=== PATIENT | male | born 1945 | race Caucasian/White ===

== ENCOUNTER → 2017-06-16 | Outpatient (CLI) | payer OTHER | LOC: FIMAGING 13:56 | PROVIDERS: ATTEND Internal Medicine | DX: R22.32 Localized swelling, mass and lump, left upper limb (principal) ==

== ENCOUNTER → 2017-06-29 | Outpatient (CLI) | payer OTHER | LOC: CIMAGING 15:09 | PROVIDERS: ATTEND Internal Medicine | DX: R91.8 Other nonspecific abnormal finding of lung field (principal); M79.89 Other specified soft tissue disorders | CPT/HCPCS: 71020-PO ==

== ENCOUNTER 2017-08-29 15:54 | Emergency (ER) | payer OTHER ==
--- NOTE | 2017-08-29 16:08 | EDPHY ---
H & P Time Seen by Provider: 08/29/17 16:07 HPI/ROS: Chief complaint. Vomiting and diarrhea HPI. 71-year-old male presents to the emergency department with vomiting and diarrhea that began early this morning. He has had both vomiting and diarrhea. No abdominal pain. No blood in either vomitus or stool. No fever chills. Recent travel to [place] reason returning 2 days ago. Also went to the [employer] yesterday and had done butted popcorn. He is tells me that he has gotten sick from movie food previously. Denies chest pain or shortness of breath. Symptoms are worse with lying on either side and seemed to be somewhat better lying on his back. He does have some achy back pain ROS Constitutional. no fever/chills, no weakness Eyes. no problems with vision ENT. no sore throat, no nasal drainage Cardiovascular. no chest pain Respiratory. no shortness of breath, no cough Abdominal. No abdominal pain but vomiting and diarrhea . no problems urinating MS. no calf pain/swelling, no neck/back pain, no joint pain Skin. no rash Lymph. no swollen glands Neuro. no headache, no dizziness, no difficulty walking or with speech Past Medical/Surgical History: GERD, hernia surgery Social History: , nonsmoker, no alcohol Smoking Status: Never smoked Physical Exam: General Appearance: Alert well-developed male mild distress vital signs are stable Eyes: Pupils equal and round no pallor or injection. ENT, mucous membranes are dry Respiratory: There are no retractions, lungs are clear to auscultation. Cardiovascular: Regular rate and rhythm. Gastrointestinal: Abdomen is soft and nontender, no masses, bowel sounds normal. Neurological: Awake and alert, sensory and motor exams grossly normal. Skin: Warm and dry, no rashes. Musculoskeletal: Neck is supple nontender. Extremities symmetrical, full range of motion. Psychiatric: Patient is oriented X 3, there is no agitation. Constitutional: Initial Vital Signs Temperature (C) 36.4 C 08/29/17 16:09 Heart Rate 79 08/29/17 16:09 Respiratory Rate 16 08/29/17 16:09 Blood Pressure 131/69 H 08/29/17 16:09 O2 Sat (%) 96 08/29/17 16:09 O2 Delivery Mode Room Air Allergies/Adverse Reactions: No Known Allergies Allergy (Verified 08/29/17 16:11) Home Medications: Medication Instructions Recorded Cialis 07/28/15 Omeprazole 07/28/15 Ondansetron Odt [Zofran Odt] 4 mg PO Q4PRN PRN #7 tab 08/29/17 Ranitidine HCl 08/29/17 Medical Decision Making Procedures: IV normal saline with initial target 2 L. Zofran for nausea ED Course/Re-evaluation: Re-evaluation 5:00 p.m.. Patient is almost finished with 1st L of saline. No urge to urinate. Decreased nausea. No abdominal pain. Beginning to take oral ice chips. 2nd IV bag is ordered 5:45 p.m. Re-evaluation and no need to urinate after to bags of fluid. 3rd bag of saline is ordered Recheck again at 6:50 p.m.. No nausea. He has some reflux and asks for some Maalox or Mylanta. Patient and I discussed treatment plan including criteria for return importance of follow-up and further evaluation. He expresses understanding and agreement Re-evaluation again at 7:30 p.m. patient is stable improved his urinated. He is taking oral fluids. He feels well. The Maalox helped his GERD. Differential Diagnosis: Likely this is food poisoning or vomiting and diarrhea gastroenteritis type illness. No evidence for diverticulitis or appendicitis - Data Points Medications Given: Discontinued Medications Al Hydroxide/Mg Hydroxide (Maalox Susp) 30 ml PO ONCE ONE Stop: 08/29/17 18:58 Last Admin: 08/29/17 19:04 Dose: 30 ml Sodium Chloride (Ns) 1,000 mls @ 0 mls/hr IV EDNOW ONE; Wide Open PRN Reason: Protocol Stop: 08/29/17 16:23 Last Admin: 08/29/17 16:35 Dose: 1,000 mls Sodium Chloride (Ns) 1,000 mls @ 0 mls/hr IV EDNOW ONE; Wide Open PRN Reason: Protocol Stop: 08/29/17 16:23 Last Admin: 08/29/17 17:38 Dose: 1,000 mls Sodium Chloride (Ns) 1,000 mls @ 0 mls/hr IV ONCE ONE PRN Reason: Wide Open Stop: 08/29/17 18:15 Last Admin: 08/29/17 18:15 Dose: 1,000 mls Ondansetron HCl (Zofran) 4 mg IVP EDNOW ONE Stop: 08/29/17 16:23 Last Admin: 08/29/17 16:38 Dose: 4 mg Ondansetron HCl (Zofran Odt 4 Mg Prepack#2) 1 btl TAKEHOME EDNOW ONE Stop: 08/29/17 19:00 Last Admin: 08/29/17 19:15 Dose: 1 btl Departure - Departure Disposition: Home, Routine, Self-Care Clinical Impression: Acute gastroenteritis Condition: Good Instructions: Gastroenteritis (ED) Additional Instructions: Frequent, small sips fluids. Gradual diet advancement. Zofran using 1 pill every 3-4 hours as needed for nausea and vomiting. Return for worsening symptoms. Recheck tomorrow if not continuing to improve Referrals: Lissett Renae MD [Primary Care Provider] - 1 day, if not improved Prescriptions: Ondansetron Odt [Zofran Odt] 4 mg PO Q4PRN PRN #7 tab PRN Reason: Nausea/Vomiting, Use 1st
[2017-08-29 16:10] VITALS: O2SAT 96
[2017-08-29] MEDS ORDERED: NS 1,000 ML IV ONE ×3 (16:22→18:14)
[2017-08-29] MEDS ORDERED: ONDANSETRON 4 MG/2 ML VIAL IVP ONE (16:22)
[2017-08-29] MEDS ORDERED: MAG HYDROX/AL HYDROX/SIMETH 30 ML UDCUP PO ONE (18:57)
[2017-08-29] MEDS ORDERED: ONDANSETRON 4MG PREPACK#2 BTL TAKEHOME ONE (18:59)
[2017-08-29 19:19] VITALS: BP 131/74; PULSE 75; RESP 18
[2017-08-29 19:25] VITALS: TEMP 99.8
== END 2017-08-29 19:59 | disposition home or self-care (01) ==
LOC: CED 15:54
DX: K52.9 Noninfective gastroenteritis and colitis, unspecified (principal); E86.9 Volume depletion, unspecified
CPT/HCPCS: 96361; 96374; 99284; J2405